=== PATIENT | male | born 1955 | race Hispanic/Latino ===

== ENCOUNTER 2020-04-02 20:22 | Inpatient (IN) | payer OTHER ==
--- NOTE | 2020-04-02 20:49 | Emergency Department Report ---
ED Chest Pain HPI - General Chief Complaint: Chest Pain Stated Complaint: CHEST PAIN Time Seen by Provider: 04/02/20 20:34 Source: patient, EMS Mode of arrival: Stretcher Limitations: No Limitations - History of Present Illness Initial Comments: 64-year-old male with a past medical history of CAD with MT x2 with 2 stents last placed 8 months ago presents to the hospital complaining of sudden onset of chest pressure while walking up a steep hill prior to arrival. Pain was rated 7/10 in intensity substernal, pressure, with radiation to the left arm. Has associated nausea and mild shortness of breath without vomiting or diaphoresis. Pain lasted a total of 45 minutes and resolved after receiving sublingual nitroglycerin provided by EMS. Pain is currently rated 2/10 in intensity and patient reports he is feeling much better. Patient has been compliant with his Plavix and baby aspirin. He states his diabetes is "diet-controlled" and denies smoking, elevated cholesterol, or family history of CAD. He denies taking any additional medications. He last had his cardiac cath 8 months ago at [facility] but does not follow-up with outpatient jig bore tool maker on a regular basis. Patient states he is currently on a ketogenic diet for the last 8 months since his last MT and that he is overall been feeling stronger with more energy and has been asymptomatic until this episode today. EMS EKG was transmitted prior to patient arrival, evaluated by Dr. Ronald Torres, and then transmitted to on-call STEMI jig bore tool maker Dr. Dominguez. Patient deemed not to have findings of ST elevation MT therefore Property Underwriter was not activated Severity scale (0 -10): 2 - Related Data Home Medications Medication Instructions Recorded Confirmed Last Taken Aspirin 325 mg PO QDAY 04/02/20 04/02/20 Unknown Clopidogrel [Plavix] 75 mg PO QDAY 04/02/20 04/02/20 Unknown Allergies Allergy/AdvReac Type Severity Reaction Status Date / Time Penicillins Allergy Rash Verified 04/02/20 20:38 Heart Score - HEART Score History: Highly suspicious EKG: Non-specific Age: 45-65 Risk factors: 1-2 risk factors Troponin: < normal limit HEART Score: 5 ED Review of Systems ROS: Stated complaint: CHEST PAIN Other details as noted in HPI Comment: All other systems reviewed and negative ED Past Medical Hx - Past Medical History Previous Medical History?: Yes Hx Heart Attack/AMI: Yes (x2) Hx Diabetes: Yes ("diet controlled') Additional medical history: heart failure - Surgical History Past Surgical History?: Yes Additional Surgical History: undescended testicle, 2 heart stents - Social History Smoking Status: Former Smoker Substance Use Type: None - Medications Home Medications: Home Medications Medication Instructions Recorded Confirmed Last Taken Type Aspirin 325 mg PO QDAY 04/02/20 04/02/20 Unknown History Clopidogrel [Plavix] 75 mg PO QDAY 04/02/20 04/02/20 Unknown History ED Physical Exam - General Limitations: No Limitations - Other Other exam information: General: No acute distress Head: Atraumatic Eyes: normal appearance ENT: Moist mucous membranes Neck: Normal appearance, no midline tenderness Chest: Clear to auscultation bilaterally CV: Regular rate and rhythm Abdomen: Soft, normal bowel sounds, nontender, nondistended, no rebound or guarding Back: Normal inspection Extremity: Normal inspection, full range of motion, no calf tenderness or leg edema Neuro: Alert O x 3, no facial asymmetry, speech clear, no gross motor sensory deficit Psych: Appropriate behavior Skin: Rash/lesion to upper right thoracic back that are covered with skin cream. Patient states he is chronically been there greater than 8 months. He did have them on the left upper thoracic area as well and they have healed ED Course Vital Signs 04/02/20 04/02/20 04/02/20 20:33 20:36 20:45 Temperature 97.8 F Pulse Rate 62 72 63 Respiratory 11 L 15 11 L Rate Blood Pressure 126/65 126/65 Blood Pressure 126/65 [Right] O2 Sat by Pulse 99 99 100 Oximetry 04/02/20 04/02/20 04/02/20 21:00 21:15 21:31 Temperature Pulse Rate 66 63 61 Respiratory 15 15 17 Rate Blood Pressure 120/63 120/63 120/63 Blood Pressure [Right] O2 Sat by Pulse 98 96 98 Oximetry 04/02/20 04/02/20 21:45 22:00 Temperature Pulse Rate 61 60 Respiratory 15 16 Rate Blood Pressure 120/63 125/65 Blood Pressure [Right] O2 Sat by Pulse 97 99 Oximetry DAMON score - Damon Score Age > 65: (0) No Aspirin use within the Past 7 Days: (1) Yes 3 or more CAD Risk Factors: (0) No 2 or more Angina events in past 24 hrs: (0) No Known CAD with more than 50% Stenosis: (1) Yes Elevated Cardiac Markers: (0) No ST Deviation Greater than 0.5mm: (0) No DAMON Score: 2 ED Medical Decision Making - Lab Data Result diagrams: 04/02/20 21:00 04/02/20 21:00 Lab Results 04/02/20 04/02/20 04/02/20 Range/Units 21:00 21:00 21:00 WBC 8.5 (4.5-11.0) K/mm3 RBC 4.42 (3.65-5.03) M/mm3 Hgb 14.1 (11.8-15.2) gm/dl Hct 43.2 (35.5-45.6) % MCV 98 H (84-94) fl MCH 32 (28-32) pg MCHC 33 (32-34) % RDW 15.4 H (13.2-15.2) % Plt Count 171 (140-440) K/mm3 Lymph % (Auto) 17.5 (13.4-35.0) % Anson % (Auto) 6.4 (0.0-7.3) % Eos % (Auto) 1.6 (0.0-4.3) % Baso % (Auto) 0.9 (0.0-1.8) % Lymph # (Auto) 1.5 (1.2-5.4) K/mm3 Anson # (Auto) 0.5 (0.0-0.8) K/mm3 Eos # (Auto) 0.1 (0.0-0.4) K/mm3 Baso # (Auto) 0.1 (0.0-0.1) K/mm3 Seg Neutrophils % 73.6 H (40.0-70.0) % Seg Neutrophils # 6.3 (1.8-7.7) K/mm3 PT 13.5 (12.2-14.9) Sec. INR 1.02 (0.87-1.13) APTT 27.1 (24.2-36.6) Sec. Sodium 142 (137-145) mmol/L Potassium 3.6 (3.6-5.0) mmol/L Chloride 102.6 (98-107) mmol/L Carbon Dioxide 21 L (22-30) mmol/L Anion Gap 22 mmol/L BUN 23 H (9-20) mg/dL Creatinine 0.9 (0.8-1.3) mg/dL Estimated GFR > 60 ml/min BUN/Creatinine Ratio 26 % Glucose 110 H (75-100) mg/dL Calcium 9.8 (8.4-10.2) mg/dL Magnesium (1.7-2.3) mg/dL Troponin T < 0.010 (0.00-0.029) ng/mL 04/02/20 Range/Units 21:00 WBC (4.5-11.0) K/mm3 RBC (3.65-5.03) M/mm3 Hgb (11.8-15.2) gm/dl Hct (35.5-45.6) % MCV (84-94) fl MCH (28-32) pg MCHC (32-34) % RDW (13.2-15.2) % Plt Count (140-440) K/mm3 Lymph % (Auto) (13.4-35.0) % Anson % (Auto) (0.0-7.3) % Eos % (Auto) (0.0-4.3) % Baso % (Auto) (0.0-1.8) % Lymph # (Auto) (1.2-5.4) K/mm3 Anson # (Auto) (0.0-0.8) K/mm3 Eos # (Auto) (0.0-0.4) K/mm3 Baso # (Auto) (0.0-0.1) K/mm3 Seg Neutrophils % (40.0-70.0) % Seg Neutrophils # (1.8-7.7) K/mm3 PT (12.2-14.9) Sec. INR (0.87-1.13) APTT (24.2-36.6) Sec. Sodium (137-145) mmol/L Potassium (3.6-5.0) mmol/L Chloride (98-107) mmol/L Carbon Dioxide (22-30) mmol/L Anion Gap mmol/L BUN (9-20) mg/dL Creatinine (0.8-1.3) mg/dL Estimated GFR ml/min BUN/Creatinine Ratio % Glucose (75-100) mg/dL Calcium (8.4-10.2) mg/dL Magnesium 1.80 (1.7-2.3) mg/dL Troponin T (0.00-0.029) ng/mL - EKG Data -: EKG Interpreted by Me EKG shows normal: sinus rhythm, ST-T waves (no stemi, pvc's) Rate: normal (66) - EKG Data When compared to previous EKG there are: no significant change (no change compared to EMS ekg) - Radiology Data Radiology results: report reviewed CHEST 1 VIEW 2040 INDICATION / CLINICAL INFORMATION: Chest Pain COMPARISON: None available. FINDINGS: SUPPORT DEVICES: None HEART / MEDIASTINUM: No significant abnormality. LUNGS / PLEURA: No significant pulmonary or pleural abnormality. No pneumothorax. ADDITIONAL FINDINGS: No significant additional findings. IMPRESSION: No significant acute abnormality - Medical Decision Making 64-year male presents to the hospital with substernal chest tightness with radiation to left arm started while climbing up a steep hill. Pain persisted and was subsequently alleviated by nitro provided by EMS. Patient compliant with aspirin and Plavix. Patient significant cardiac risk factors with MT x2, stent x2 with last cath/stent placement 8 months ago. Patient is not follow-up with a jig bore tool maker outpatient. EKG evaluation here without acute ST ration MT and ED EKG unchanged from EMS EKG with exception of multiple PVCs here in the de partment. Magnesium and troponin are negative. Repeat troponin pending. Pain resolved in the ED without additional treatment. Hospitalist informed for admission. Cardiology consult ordered with on-call jig bore tool maker group [facility] Critical Care Time: No Critical care attestation.: If time is entered above; I have spent that time in minutes in the direct care of this critically ill patient, excluding procedure time. ED Disposition Clinical Impression: H/O heart artery stent, Exertional chest pain Disposition: OP ADMIT IP TO THIS HOSP Is pt being admited?: Yes Condition: Stable Time of Disposition: 21:44
[2020-04-02 21:19] LABS: Basophils # (Auto) 0.1 K/mm3 (0.0-0.1); Basophils % (Auto) 0.9 % (0.0-1.8); Eosinophils # (Auto) 0.1 K/mm3 (0.0-0.4); Eosinophils % (Auto) 1.6 % (0.0-4.3); Hematocrit 43.2 % (35.5-45.6); Hemoglobin 14.1 gm/dl (11.8-15.2); Lymphocytes # (Auto) 1.5 K/mm3 (1.2-5.4); Lymphocytes % (Auto) 17.5 % (13.4-35.0); Mean Corpuscular HGB Conc 33 % (32-34); Mean Corpuscular Volume 98 fl (84-94); Monocytes # (Auto) 0.5 K/mm3 (0.0-0.8); Monocytes % (Auto) 6.4 % (0.0-7.3); Platelet Count 171 K/mm3 (140-440); Red Blood Count 4.42 M/mm3 (3.65-5.03); Red Cell Distribution Width 15.4 % (13.2-15.2)
[2020-04-02 21:28] LABS: INR 1.02 (0.87-1.13); Partial Thromboplastin Time 27.1 Sec. (24.2-36.6)
[2020-04-02 21:31] LABS: BUN/Creatinine Ratio 26; Blood Urea Nitrogen 23 mg/dL (9-20); Calcium 9.8 mg/dL (8.4-10.2); Hemolysis Index 4
--- NOTE | 2020-04-02 21:31 | XRay Report ---
CHEST 1 VIEW 2040 INDICATION / CLINICAL INFORMATION: Chest Pain COMPARISON: None available. FINDINGS: SUPPORT DEVICES: None HEART / MEDIASTINUM: No significant abnormality. LUNGS / PLEURA: No significant pulmonary or pleural abnormality. No pneumothorax. ADDITIONAL FINDINGS: No significant additional findings. IMPRESSION: No significant acute abnormality Signer Name: Trung Frederick MD Signed: 04/02/2020 9:26 PM Workstation Name: [id number]
[2020-04-02] MEDS ORDERED: ACETAMINOPHEN 325 MG TAB PO PRN ×2 (22:10)
[2020-04-02] MEDS ORDERED: DEXTROSE 50% IN WATER (25GM) 50 ML SYRINGE IV PRN (22:10)
[2020-04-02] MEDS ORDERED: MORPHINE 4 MG/1 ML INJ IV PRN (22:10)
[2020-04-02] MEDS ORDERED: ONDANSETRON 4 MG/2 ML INJ IV PRN (22:10)
--- NOTE | 2020-04-02 22:23 | History and Physical Report ---
History of Present Illness Date of examination: 04/02/20 Date of admission: 04/02/2020 Chief complaint: Chest Pain History of present illness: 64-year-old male with known history of coronary artery disease with [place] and stent placement x2, history of CHF, diet-controlled diabetes mellitus presented to the emergency room today complaining of sudden onset of chest pressure today. Symptoms were said to have started when he was walking up a steep hill earlier today. He was said to be substernal with radiation towards the left upper upper extremity. On a scale of 10 pain was about 7/10 in severity. Pain lasted for about 30 to 45 minutes but felt better after taking some sublingual nitroglycerin which was given to him by EMS. He had associated nausea and mild shortness of breath. He denies any vomiting, no diaphoresis, no headache or dizziness. Patient had a cardiac cath about 8 months ago at [facility] but has not followed up with any slurry control operator helper lately. Upon arrival in the emergency room work-up included EKG, chest x-ray, troponin has been unremarkable. Patient admitted to be evaluated for chest pain. Case was discussed with on- call slurry control operator helper by the ER physician. Past History Past Medical History: CAD (S/P [place] X2), diabetes (Diet Controlled), heart failure Past Surgical History: PTCA, Other (Surgery for Undescended testicle.) Social history: smoking (Former Smoker) Family history: no significant family history Medications and Allergies Allergies Allergy/AdvReac Type Severity Reaction Status Date / Time Penicillins Allergy Rash Verified 04/02/20 20:38 Home Medications Medication Instructions Recorded Confirmed Last Taken Type Aspirin 325 mg PO QDAY 04/02/20 04/02/20 Unknown History Clopidogrel [Plavix] 75 mg PO QDAY 04/02/20 04/02/20 Unknown History Active Meds: Active Medications Acetaminophen (Tylenol) 650 mg PO Q4H PRN PRN Reason: Pain MILD(1-3)/Fever >100.5/TOLENTINO Acetaminophen (Tylenol) 650 mg PO Q6H PRN PRN Reason: Pain, Mild (1-3) Aspirin (Ecotrin) 325 mg PO QDAY NAYLA Dextrose (D50w (25gm) Syringe) 50 ml IV Q30MIN PRN; Protocol PRN Reason: Hypoglycemia Dextrose (D50w (25gm) Syringe) 50 ml IV Q30MIN PRN; Protocol PRN Reason: Hypoglycemia Insulin Human Lispro (Humalog) 0 unit SUB-Q ACHS NAYLA; Protocol Morphine Sulfate (Morphine) 2 mg IV Q5MIN PRN PRN Reason: Chest Pain Nitroglycerin (Nitrostat) 0.4 mg SL Q5M PRN PRN Reason: Chest Pain Ondansetron HCl (Zofran) 4 mg IV Q8H PRN PRN Reason: Nausea And Vomiting Sodium Chloride (Sodium Chloride Flush Syringe 10 Ml) 10 ml IV BID NAYLA Sodium Chloride (Sodium Chloride Flush Syringe 10 Ml) 10 ml IV PRN PRN PRN Reason: LINE FLUSH Sodium Chloride (Sodium Chloride Flush Syringe 10 Ml) 10 ml IV PRN PRN PRN Reason: LINE FLUSH Review of Systems Constitutional: no fever, no chills Ears, nose, mouth and throat: no nasal congestion, no sore throat Cardiovascular: chest pain, no palpitations Respiratory: no cough, no shortness of breath Gastrointestinal: nausea, no abdominal pain, no vomiting, no diarrhea Genitourinary Male: no dysuria, no hematuria, no nocturia Musculoskeletal: no neck pain, no low back pain Integumentary: no rash, no pruritis Neurological: no headaches, no confusion Psychiatric: no anxiety, no depression Exam - Constitutional Vitals: Temp Pulse Resp BP Pulse Ox 97.8 F 60 16 125/65 99 04/02/20 20:36 04/02/20 22:00 04/02/20 22:00 04/02/20 22:00 04/02/20 22:00 General appearance: Present: no acute distress, well-nourished - EENT Eyes: Present: PERRL, EOM intact. Absent: scleral icterus ENT: hearing intact, clear oral mucosa, dentition normal - Neck Neck: Present: supple, normal ROM - Respiratory Respiratory effort: normal Respiratory: bilateral: CTA - Cardiovascular Rhythm: regular Heart Sounds: Present: S1 & S2. Absent: gallop, systolic murmur, diastolic murmur, rub - Extremities Extremities: no ischemia, pulses intact, pulses symmetrical, No edema, normal temperature, normal color, Full ROM Peripheral Pulses: within normal limits - Abdominal General gastrointestinal: Present: soft, non-tender, non-distended, normal bowel sounds. Absent: mass - Integumentary Integumentary: Present: clear, warm, dry. Absent: rash - Musculoskeletal Musculoskeletal: strength equal bilaterally - Psychiatric Psychiatric: appropriate mood/affect, intact judgment & insight, memory intact, cooperative - Neurologic Neurologic: CNII-XII intact, no focal deficits, moves all extremities HEART Score - HEART Score History: Slightly suspicious EKG: Non-specific Age: 45-65 Risk factors: > 3 risk factors or hx of atherosclerotic disease Troponin: Troponin T < 0.010 ng/mL (0.00-0.029) 04/02/20 21:00 Troponin: < normal limit HEART Score: 4 Results - Labs CBC & Chem 7: 04/03/20 04:55 04/03/20 04:55 Labs: Abnormal lab results 04/02/20 04/02/20 Range/Units 21:00 21:00 MCV 98 H (84-94) fl RDW 15.4 H (13.2-15.2) % Seg Neutrophils % 73.6 H (40.0-70.0) % Carbon Dioxide 21 L (22-30) mmol/L BUN 23 H (9-20) mg/dL Glucose 110 H (75-100) mg/dL Assessment and Plan - Patient Problems (1) Exertional chest pain Current Visit: Yes Status: Acute Plan to address problem: Patient admitted and placed on telemetry. Will check serial cardiac enzymes. Patient placed on daily aspirin, sublingual nitroglycerin and IV morphine as needed for chest pain. Informed during the course of this dictation that the troponin levels has become positive. Will place patient on heparin drip and await further evaluation by cardiology. (2) H/O heart artery stent Current Visit: Yes Status: Acute Plan to address problem: Patient had last cardiac cath about 8 months ago. He has not followed up with any slurry control operator helper lately. We will await further evaluation by cardiology. (3) Diabetes mellitus Current Visit: Yes Status: Acute Plan to address problem: Will monitor Accu-Chek. (4) DVT prophylaxis Current Visit: Yes Status: Acute Plan to address problem: Patient currently on anticoagulation. (5) Full code status Current Visit: Yes Status: Acute
[2020-04-03 01:38] LABS: Basophils # (Auto) 0.1 K/mm3 (0.0-0.1); Eosinophils # (Auto) 0.1 K/mm3 (0.0-0.4); Hematocrit 40.2 % (35.5-45.6); Hemoglobin 13.5 gm/dl (11.8-15.2); Lymphocytes # (Auto) 1.3 K/mm3 (1.2-5.4); Lymphocytes % (Auto) 17.6 % (13.4-35.0); Mean Corpuscular HGB Conc 34 % (32-34); Mean Corpuscular Volume 95 fl (84-94); Monocytes # (Auto) 0.4 K/mm3 (0.0-0.8); Platelet Count 167 K/mm3 (140-440); Red Blood Count 4.25 M/mm3 (3.65-5.03); Red Cell Distribution Width 14.6 % (13.2-15.2)
[2020-04-03 01:46] LABS: BUN/Creatinine Ratio 22; Blood Urea Nitrogen 20 mg/dL (9-20); Calcium 9.3 mg/dL (8.4-10.2); Hemolysis Index 2
[2020-04-03 03:12] LABS: Chol/HDL Ratio 3.46 %
[2020-04-03 05:56] LABS: BUN/Creatinine Ratio 19; Blood Urea Nitrogen 17 mg/dL (9-20); Calcium 9.4 mg/dL (8.4-10.2); Hemolysis Index 3
[2020-04-03 05:58] LABS: Basophils # (Auto) 0.1 K/mm3 (0.0-0.1); Basophils % (Auto) 1.1 % (0.0-1.8); Eosinophils # (Auto) 0.1 K/mm3 (0.0-0.4); Eosinophils % (Auto) 2.5 % (0.0-4.3); Hematocrit 39.9 % (35.5-45.6); Hemoglobin 13.5 gm/dl (11.8-15.2); Lymphocytes # (Auto) 1.7 K/mm3 (1.2-5.4); Mean Corpuscular HGB Conc 34 % (32-34); Mean Corpuscular Volume 93 fl (84-94); Monocytes # (Auto) 0.4 K/mm3 (0.0-0.8); Monocytes % (Auto) 6.7 % (0.0-7.3); Platelet Count 162 K/mm3 (140-440); Red Blood Count 4.28 M/mm3 (3.65-5.03); Red Cell Distribution Width 14.3 % (13.2-15.2)
[2020-04-03 06:02] LABS: INR 1.06 (0.87-1.13)
[2020-04-03] MEDS ORDERED: HEPARIN 10,000 UNITS/10 ML VIAL IV ONE ×2 (06:11→06:22)
[2020-04-03 07:11] LABS: Partial Thromboplastin Time 29.3 Sec. (24.2-36.6)
[2020-04-03] MEDS: HEPARIN/ 0.45% NACL DRIP 25,000 UNIT/500 ML BAG IV SCH ×2 (07:42→15:30)
[2020-04-03] MEDS: INSULIN LISPRO 100 UNIT/ML VIAL 3 mL SUB-Q SCH ×5 (08:15→22:12)
[2020-04-03] MEDS ORDERED: REGADENOSON 0.4 MG/5 ML INJ IV ONE (08:21)
[2020-04-03] MEDS: NITROGLYCERIN 0.4 MG TAB SUBL SL PRN ×2 (09:36→09:47)
--- NOTE | 2020-04-03 09:54 | Consultation ---
HISTORY OF PRESENT ILLNESS: The patient is a 64-year-old male with a known history of diabetes, coronary artery disease and congestive heart failure. He moved here not long ago. He had a catheterization about 8 months ago at [facility] and he presented to the Emergency Room with prolonged chest pain that lasted 30-45 minutes that was precipitated by exertion. He states that right now he is having some mild chest pain at rest. There is a remote history of congestive heart failure. He has been following a ketogenic diet and has been losing weight. His blood sugar has been okay. He stopped his cholesterol medication and diabetes medicine. He is not seeing a doctor regularly. There has been no sleep disorder, palpitations, dizziness, lung disorders, claudication or edema. He did not describe any problems with hypertension. He does describe some mild neuropathy. He stopped smoking years ago. The chest discomfort felt like his previous heart pain. He has had stents placed twice in the past and he has had one heart attack in the past. It seemed to improve after EMS gave him sublingual nitroglycerin. SOCIAL HISTORY: Smoking, prior smoker. Alcohol, no heavy use. FAMILY HISTORY: No significant family history is listed. MEDICATIONS: See the nurse's list. ALLERGIES: PENICILLIN. OPERATIONS: None listed. REVIEW OF SYSTEMS: No infectious symptoms described. No significant skin or skeletal problems described. No significant GI or disorders described. A review of systems is otherwise unremarkable. PHYSICAL EXAMINATION: GENERAL: Well-developed, well-nourished, no acute distress. Alert, oriented, cooperative. Mental status normal. EYES, NOSE, AND THROAT: Unremarkable. NECK: Reveals no JVD or bruits. Neck is supple, no masses. LUNGS: Clear. No labored respirations. HEART: Regular rhythm. Soft S4. No murmurs or rubs. ABDOMEN: Soft, nontender, no masses. EXTREMITIES: No cyanosis, clubbing, edema. Peripheral pulses are intact, but slightly diminished. NEUROLOGIC: Symmetrical. SKIN: Clear. LABORATORY DATA: EKG, nonspecific ST-T changes. IMPRESSION: 1. Unstable angina. Given his prolonged chest pain prior to presentation, now he is having mild chest pain at rest, I feel a stress test would be risky and he should have coronary angiography. Note that there has been a mild increase, trend in the troponin level, although the troponin level is low. 2. Hyperlipidemia with an LDL of 150, he has not been on statin therapy. 3. History of type 2 diabetes: Controlled. 4. Prior history of congestive heart failure: LV function will be determined during this hospitalization. PLAN: Aggressive antianginal therapy. Recommend coronary angiography at this time. Thank you for this consultation. JOB# [id number] ANNEMARIE/NTS
--- NOTE | 2020-04-03 10:20 | Progress Note ---
Assessment and Plan - Patient Problems (1) Exertional chest pain Current Visit: Yes Status: Acute Plan to address problem: Present to the emergency department complaining of exertional chest pain Denies chest pain at this time Cardiology consulted in the emergency department Serial troponins have been elevated (<0.010, 0.051, 0.079) PRN morphine and nitroglycerin for chest pain PRN EKG and every morning Patient has a follow-up with paper baler within 8 months r/t distance 04/03 stress test canceled due to excessive risk by paper baler Scheduled for left heart cath on 04/04 (2) Congestive heart failure Current Visit: Yes Status: Chronic Plan to address problem: Unknown ejection fraction 04/03 left heart cath Cardiology consult Supportive care (3) Diabetes mellitus Current Visit: Yes Status: Chronic Plan to address problem: Patient states has been diet controlled, he has been following a ketogenic diet SSI Accu-Cheks AC at bedtime Hemoglobin A1c (4) CAD (coronary artery disease) Current Visit: Yes Status: Chronic Plan to address problem: 04/03 LDH profile: Triglycerides 52, cholesterol 208, LDL 150, HDL 60 Patient states he has been following the ketogenic diet Started on statin therapy (5) DVT prophylaxis Current Visit: Yes Status: Acute Plan to address problem: SCDs to bilateral lower extremities while in bed Systemic anticoagulation with heparin drip History Interval history: 64-year-old male with coronary artery disease with TX and stent placement x2, CHF, DM and former smoker who presents to the emergency department on 04/02 with exertional substernal chest pressure with radiation towards the left upper extremity rated a 7/10 which lasted about 30 to 45 minutes and improved with sublingual nitroglycerin. He had associated nausea and mild shortness of breath. Of note the patient had a cardiac cath about 8 months ago at [facility] but has not followed up with a paper baler lately since he has moved away from his paper baler. Work-up in the emergency department included EKG, chest x-ray, and cardiac enzymes which all showed no acute abnormality. Cardiology was consulted in the emergency department. After his admission to the hospital his troponins have elevated and he was scheduled for a stress test today. However after evaluation by the paper baler it was deemed that a stress test would be dangerous and he has been scheduled for left heart cath tomorrow morning. He will be n.p.o. after midnight. The time of my examination he vincenzo ed any chest pain, nausea/vomiting or shortness of breath. He is currently on heparin drip and no acute events were reported overnight. Hospitalist Physical - Constitutional Vitals: Temp Pulse Resp BP Pulse Ox 97.9 F 67 20 126/70 99 04/03/20 07:42 04/03/20 09:47 04/03/20 07:42 04/03/20 09:47 04/03/20 07:42 General appearance: Present: no acute distress, well-nourished - EENT Eyes: Present: PERRL, EOM intact ENT: hearing intact, clear oral mucosa - Neck Neck: Present: supple, normal ROM - Respiratory Respiratory effort: normal Respiratory: bilateral: CTA - Cardiovascular Rhythm: regular Heart Sounds: Present: S1 & S2. Absent: systolic murmur, diastolic murmur - Extremities Extremities: no ischemia, pulses intact, pulses symmetrical, No edema, normal temperature, normal color, Full ROM Peripheral Pulses: within normal limits - Abdominal General gastrointestinal: soft, non-tender, normal bowel sounds - Integumentary Integumentary: Present: clear, warm, dry - Psychiatric Psychiatric: appropriate mood/affect, cooperative - Neurologic Neurologic: CNII-XII intact, no focal deficits, moves all extremities - Allied Health Allied health notes reviewed: nursing HEART Score - HEART Score EKG: Non-specific Age: 45-65 Risk factors: > 3 risk factors or hx of atherosclerotic disease Troponin: Troponin T 0.079 ng/mL (0.00-0.029) H D 04/03/20 04:55 Troponin: 1-3x normal limit Results - Labs CBC & Chem 7: 04/03/20 04:55 04/03/20 04:55 Labs: Laboratory Last Values WBC 5.8 K/mm3 (4.5-11.0) 04/03/20 04:55 RBC 4.28 M/mm3 (3.65-5.03) 04/03/20 04:55 Hgb 13.5 gm/dl (11.8-15.2) 04/03/20 04:55 Hct 39.9 % (35.5-45.6) 04/03/20 04:55 MCV 93 fl (84-94) 04/03/20 04:55 MCH 32 pg (28-32) 04/03/20 04:55 MCHC 34 % (32-34) 04/03/20 04:55 RDW 14.3 % (13.2-15.2) 04/03/20 04:55 Plt Count 162 K/mm3 (140-440) 04/03/20 04:55 Lymph % (Auto) 29.0 % (13.4-35.0) 04/03/20 04:55 [place] % (Auto) 6.7 % (0.0-7.3) 04/03/20 04:55 Eos % (Auto) 2.5 % (0.0-4.3) 04/03/20 04:55 Baso % (Auto) 1.1 % (0.0-1.8) 04/03/20 04:55 Lymph # (Auto) 1.7 K/mm3 (1.2-5.4) 04/03/20 04:55 [place] # (Auto) 0.4 K/mm3 (0.0-0.8) 04/03/20 04:55 Eos # (Auto) 0.1 K/mm3 (0.0-0.4) 04/03/20 04:55 Baso # (Auto) 0.1 K/mm3 (0.0-0.1) 04/03/20 04:55 Seg Neutrophils % 60.7 % (40.0-70.0) 04/03/20 04:55 Seg Neutrophils # 3.5 K/mm3 (1.8-7.7) 04/03/20 04:55 PT 13.9 Sec. (12.2-14.9) 04/03/20 04:55 INR 1.06 (0.87-1.13) 04/03/20 04:55 APTT 29.3 Sec. (24.2-36.6) 04/03/20 04:55 Sodium 140 mmol/L (137-145) 04/03/20 04:55 Potassium 3.6 mmol/L (3.6-5.0) 04/03/20 04:55 Chloride 103.0 mmol/L (98-107) 04/03/20 04:55 Carbon Dioxide 23 mmol/L (22-30) 04/03/20 04:55 Anion Gap 18 mmol/L 04/03/20 04:55 BUN 17 mg/dL (9-20) 04/03/20 04:55 Creatinine 0.9 mg/dL (0.8-1.3) 04/03/20 04:55 Estimated GFR > 60 ml/min 04/03/20 04:55 BUN/Creatinine Ratio 19 % 04/03/20 04:55 Glucose 93 mg/dL (75-100) 04/03/20 04:55 Calcium 9.4 mg/dL (8.4-10.2) 04/03/20 04:55 Magnesium 1.80 mg/dL (1.7-2.3) 04/02/20 21:00 Troponin T 0.079 ng/mL (0.00-0.029) H D 04/03/20 04:55 Triglycerides 52 mg/dL (2-149) 04/03/20 00:28 Cholesterol 208 mg/dL (50-199) H 04/03/20 00:28 LDL Cholesterol Direct 150 mg/dL (50-130) H 04/03/20 00:28 HDL Cholesterol 60 mg/dL (40-59) H 04/03/20 00:28 Cholesterol/HDL Ratio 3.46 % 04/03/20 00:28 Duff/IV: Voiding Method Toilet IV Catheter Type [Right INT / Saline Lock Antecubital] Active Medications - Current Medications Current Medications: Generic Name Dose Route Start Last Admin Trade Name Freq PRN Reason Stop Dose Admin Acetaminophen 650 mg 04/02/20 22:10 Tylenol PO Q4H PRN Pain MILD(1-3)/Fever >100.5/TOLENTINO Aspirin 325 mg 04/03/20 10:00 Ecotrin PO QDAY NAYLA Atorvastatin Calcium 80 mg 04/03/20 22:00 Lipitor PO QHS NAYLA Dextrose 50 ml 04/02/20 22:10 D50w (25gm) Syringe IV Q30MIN PRN Hypoglycemia Protocol Heparin Sodium/Sodium Chloride 25,000 unit in 500 mls @ 20 mls/hr 04/03/20 07:00 04/03/20 07:42 Heparin/ 0.45% Nacl-25,000 Unit/500 Ml IV 1,000 units/hr TITRATE NAYLA 20 mls/hr Administration Protocol 1,000 UNITS/HR Insulin Human Lispro 0 unit 04/03/20 07:30 04/03/20 08:26 Humalog SUB-Q Not Given ACHS [facility] Protocol Morphine Sulfate 2 mg 04/02/20 22:10 Morphine IV Q5MIN PRN Chest Pain Nitroglycerin 0.4 mg 04/02/20 22:10 04/03/20 09:47 Nitrostat SL 0.4 mg Q5M PRN Administration Chest Pain Ondansetron HCl 4 mg 04/02/20 22:10 Zofran IV Q8H PRN Nausea And Vomiting Sodium Chloride 10 ml 04/03/20 10:00 Sodium Chloride Flush Syringe 10 Ml IV BID [facility] Sodium Chloride 10 ml 04/02/20 22:10 Sodium Chloride Flush Syringe 10 Ml IV PRN PRN LINE FLUSH
[2020-04-03] MEDS: ASPIRIN EC 325 MG TAB PO SCH (10:37)
[2020-04-03] MEDS: NITROGLYCERIN 2% OINT 1 GM TP SCH ×2 (14:02→19:00)
--- NOTE | 2020-04-03 18:25 | Event Note ---
Date: 04/03/20 I called and spoke to patient's Ms. Tennille Linn and his daughter at [phone], and discussed about the patient's condition treatment plan, schedule heart cath tomorrow.I answered all their questions, and encouraged him to call back with any new questions or concerns I also informed patient's nurse Ms. Pizarro of the conversation with patient's spouse and the daughter.
[2020-04-03] MEDS ORDERED: carvediloL 3.125 MG TAB PO SCH (22:00)
[2020-04-04] MEDS: NITROGLYCERIN 2% OINT 1 GM TP SCH (06:55)
[2020-04-04] MEDS: HEPARIN/ 0.45% NACL DRIP 25,000 UNIT/500 ML BAG IV SCH (07:32)
[2020-04-04 08:01] LABS: INR 0.98 (0.87-1.13)
[2020-04-04 08:03] LABS: Partial Thromboplastin Time 42.2 Sec. (24.2-36.6)
[2020-04-04 08:08] LABS: Alanine Aminotransferase 12 units/L (7-56); Albumin 3.9 g/dL (3.9-5); BUN/Creatinine Ratio 15; Blood Urea Nitrogen 15 mg/dL (9-20); Calcium 9.2 mg/dL (8.4-10.2); Hemolysis Index 14
[2020-04-04] MEDS: INSULIN LISPRO 100 UNIT/ML VIAL 3 mL SUB-Q SCH ×4 (08:26→21:45)
[2020-04-04] MEDS ORDERED: HEPARIN/NS 5000 UNIT/500ML 1,000 ML IR ONE (09:19)
[2020-04-04] MEDS ORDERED: VERAPAMIL 5 MG/2 ML INJ ONE (09:19)
[2020-04-04] MEDS ORDERED: NITROGLYCERIN SYRINGE 3 ML ONE (09:20)
[2020-04-04] MEDS ORDERED: SODIUM CHLORIDE 0.9% 500 ML 500 ML ONE (09:20)
[2020-04-04] MEDS ORDERED: fentaNYL 100 MCG/2 ML INJ ONE (09:20)
[2020-04-04] MEDS ORDERED: MIDAZOLAM 2 MG/2 ML INJ ONE (09:20)
[2020-04-04] MEDS ORDERED: LIDOCAINE (2%) 20 MG/1 ML VIAL 20 ML MDV INFILTRATI ONE (09:20)
[2020-04-04] MEDS ORDERED: ASPIRIN 325 MG TAB ONE (09:21)
[2020-04-04] MEDS: ASPIRIN EC 325 MG TAB PO SCH (09:45)
[2020-04-04] MEDS: LISINOPRIL 5 MG TAB PO SCH (09:45)
--- NOTE | 2020-04-04 09:58 | Progress Note ---
Assessment and Plan - Patient Problems (1) Exertional chest pain Current Visit: Yes Status: Acute Plan to address problem: Present to the emergency department complaining of exertional chest pain Cardiology consulted in the emergency department Serial troponins have been elevated (<0.010, 0.051, 0.079) -Started on heparin gtt 04/03 PRN morphine and nitroglycerin for chest pain PRN EKG and every morning -Nitro paste started on 04/03 Patient has not followup with manager talent acquisition within 8 months r/t distance 04/03 stress test canceled due to excessive risk by manager talent acquisition Scheduled for left heart cath on 04/04 (2) Congestive heart failure Current Visit: Yes Status: Chronic Plan to address problem: Unknown ejection fraction 04/03 left heart cath Cardiology consult Supportive care -Started on BB (3) Diabetes mellitus Current Visit: Yes Status: Chronic Plan to address problem: Patient states has been diet controlled, he has been following a ketogenic diet SSI Accu-Cheks AC at bedtime 04/03 Hemoglobin A1c 6 (4) CAD (coronary artery disease) Current Visit: Yes Status: Chronic Plan to address problem: 04/03 LDH profile: Triglycerides 52, cholesterol 208, LDL 150, HDL 60 Patient states he has been following the ketogenic diet Started on statin therapy (5) DVT prophylaxis Current Visit: Yes Status: Acute Plan to address problem: SCDs to bilateral lower extremities while in bed Systemic anticoagulation with heparin drip History Interval history: 64-year-old male with coronary artery disease with MN and stent placement x2, CHF, DM and former smoker who presents to the emergency department on 04/02 with exertional substernal chest pressure with radiation towards the left upper extremity rated a 7/10 which lasted about 30 to 45 minutes and improved with sublingual nitroglycerin. He had associated nausea and mild shortness of breath. Of note the patient had a cardiac cath about 8 months ago at [facility] but has not followed up with a manager talent acquisition lately since he has moved away from his manager talent acquisition. Work-up in the emergency department included EKG, chest x-ray, and cardiac enzymes which all showed no acute abnormality. Cardiology was consulted in the emergency department. After his admission to the hospital his troponins have elevated and he was scheduled for a stress test on 04/03 which was cancelled. He is scheduled for a LHC this am. He was started on TD nitro paste and does not complain of any chest pain at the time of my exam. CM was consulted as pt is unfunded. I spoke to the patient regarding resources for obtaining prescription discounts and ongoing outpatient care on 04/03. 04/03: After evaluation by the manager talent acquisition it was deemed that a stress test would be dangerous and he has been scheduled for left heart cath tomorrow morning. Hospitalist Physical - Constitutional Vitals: Temp Pulse Resp BP Pulse Ox 97.9 F 66 16 128/73 96 04/04/20 03:58 04/04/20 03:58 04/04/20 03:58 04/04/20 03:58 04/04/20 03:58 General appearance: Present: no acute distress, well-nourished - EENT Eyes: Present: PERRL, EOM intact ENT: hearing intact, dentition normal - Neck Neck: Present: supple, normal ROM - Respiratory Respiratory effort: normal Respiratory: bilateral: CTA - Cardiovascular Rhythm: regular Heart Sounds: Present: S1 & S2. Absent: systolic murmur, diastolic murmur - Extremities Extremities: no ischemia, pulses intact, pulses symmetrical, No edema, normal temperature, normal color, Full ROM Peripheral Pulses: within normal limits - Abdominal General gastrointestinal: soft, non-tender, non-distended, normal bowel sounds - Integumentary Integumentary: Present: clear, warm, dry - Psychiatric Psychiatric: appropriate mood/affect, cooperative - Neurologic Neurologic: CNII-XII intact, no focal deficits, moves all extremities - Allied Health Allied health notes reviewed: nursing, social work, case management HEART Score - HEART Score History: Moderately suspicious EKG: Non-specific Age: 45-65 Risk factors: > 3 risk factors or hx of atherosclerotic disease Troponin: Troponin T 0.079 ng/mL (0.00-0.029) H D 04/03/20 04:55 Troponin: 1-3x normal limit HEART Score: 6 Results - Labs CBC & Chem 7: 04/03/20 04:55 04/04/20 06:59 Labs: Laboratory Last Values WBC 5.8 K/mm3 (4.5-11.0) 04/03/20 04:55 RBC 4.28 M/mm3 (3.65-5.03) 04/03/20 04:55 Hgb 13.5 gm/dl (11.8-15.2) 04/03/20 04:55 Hct 39.9 % (35.5-45.6) 04/03/20 04:55 MCV 93 fl (84-94) 04/03/20 04:55 MCH 32 pg (28-32) 04/03/20 04:55 MCHC 34 % (32-34) 04/03/20 04:55 RDW 14.3 % (13.2-15.2) 04/03/20 04:55 Plt Count 162 K/mm3 (140-440) 04/03/20 04:55 Lymph % (Auto) 29.0 % (13.4-35.0) 04/03/20 04:55 [place] % (Auto) 6.7 % (0.0-7.3) 04/03/20 04:55 Eos % (Auto) 2.5 % (0.0-4.3) 04/03/20 04:55 Baso % (Auto) 1.1 % (0.0-1.8) 04/03/20 04:55 Lymph # (Auto) 1.7 K/mm3 (1.2-5.4) 04/03/20 04:55 [place] # (Auto) 0.4 K/mm3 (0.0-0.8) 04/03/20 04:55 Eos # (Auto) 0.1 K/mm3 (0.0-0.4) 04/03/20 04:55 Baso # (Auto) 0.1 K/mm3 (0.0-0.1) 04/03/20 04:55 Seg Neutrophils % 60.7 % (40.0-70.0) 04/03/20 04:55 Seg Neutrophils # 3.5 K/mm3 (1.8-7.7) 04/03/20 04:55 PT 13.1 Sec. (12.2-14.9) 04/04/20 06:59 INR 0.98 (0.87-1.13) 04/04/20 06:59 APTT 42.2 Sec. (24.2-36.6) H 04/04/20 06:59 Heparin Anti-Xa Level 0.28 U.I./ml (0.3-0.7) L 04/04/20 06:59 Sodium 144 mmol/L (137-145) 04/04/20 06:59 Potassium 3.9 mmol/L (3.6-5.0) 04/04/20 06:59 Chloride 105.0 mmol/L (98-107) 04/04/20 06:59 Carbon Dioxide 28 mmol/L (22-30) 04/04/20 06:59 Anion Gap 15 mmol/L 04/04/20 06:59 BUN 15 mg/dL (9-20) 04/04/20 06:59 Creatinine 1.0 mg/dL (0.8-1.3) 04/04/20 06:59 Estimated GFR > 60 ml/min 04/04/20 06:59 BUN/Creatinine Ratio 15 % 04/04/20 06:59 Glucose 79 mg/dL (75-100) 04/04/20 06:59 POC Glucose 77 (70-105) 04/04/20 04:21 Hemoglobin A1c 6.0 % (4-6) 04/03/20 13:42 Calcium 9.2 mg/dL (8.4-10.2) 04/04/20 06:59 Magnesium 1.80 mg/dL (1.7-2.3) 04/02/20 21:00 Total Bilirubin 0.60 mg/dL (0.1-1.2) 04/04/20 06:59 AST 17 units/L (5-40) 04/04/20 06:59 ALT 12 units/L (7-56) 04/04/20 06:59 Alkaline Phosphatase 50 units/L (35-129) 04/04/20 06:59 Troponin T 0.079 ng/mL (0.00-0.029) H D 04/03/20 04:55 Total Protein 6.4 g/dL (6.3-8.2) 04/04/20 06:59 Albumin 3.9 g/dL (3.9-5) 04/04/20 06:59 Albumin/Globulin Ratio 1.6 % 04/04/20 06:59 Triglycerides 52 mg/dL (2-149) 04/03/20 00:28 Cholesterol 208 mg/dL (50-199) H 04/03/20 00:28 LDL Cholesterol Direct 150 mg/dL (50-130) H 09/28/20 00:28 HDL Cholesterol 60 mg/dL (40-59) H 04/03/20 00:28 Cholesterol/HDL Ratio 3.46 % 04/03/20 00:28 Duff/IV: Voiding Method Toilet IV Catheter Type [Right INT / Saline Lock Antecubital] Active Medications - Current Medications Current Medications: Generic Name Dose Route Start Last Admin Trade Name Freq PRN Reason Stop Dose Admin Acetaminophen 650 mg 04/02/20 22:10 Tylenol PO Q4H PRN Pain MILD(1-3)/Fever >100.5/TOLENTINO Aspirin 325 mg 04/03/20 10:00 04/03/20 10:37 Ecotrin PO Not Given QDAY [facility] Atorvastatin Calcium 80 mg 04/03/20 22:00 04/03/20 22:02 Lipitor PO 80 mg QHS [facility] Administration Carvedilol 3.125 mg 04/03/20 22:00 04/03/20 22:02 Coreg PO Not Given BID [facility] Dextrose 50 ml 04/02/20 22:10 D50w (25gm) Syringe IV Q30MIN PRN Hypoglycemia Protocol Heparin Sodium/Sodium Chloride 25,000 unit in 500 mls @ 20 mls/hr 04/03/20 07:00 04/04/20 07:32 Heparin/ 0.45% Nacl-25,000 Unit/500 Ml IV 800 units/hr TITRATE NAYLA 16 mls/hr Administration Protocol 1,000 UNITS/HR Insulin Human Lispro 0 unit 04/03/20 07:30 04/03/20 22:12 Humalog SUB-Q Not Given ACHS [facility] Protocol Lisinopril 5 mg 04/04/20 10:00 Zestril PO QDAY [facility] Morphine Sulfate 2 mg 04/02/20 22:10 Morphine IV Q5MIN PRN Chest Pain Nitroglycerin 0.4 mg 04/02/20 22:10 04/03/20 09:47 Nitrostat SL 0.4 mg Q5M PRN Administration Chest Pain Nitroglycerin 0.5 inch 04/03/20 14:00 04/04/20 06:55 Nitro-Bid 2% TP Not Given QIDNTG [facility] Protocol Ondansetron HCl 4 mg 04/02/20 22:10 Zofran IV Q8H PRN Nausea And Vomiting Sodium Chloride 10 ml 04/03/20 10:00 04/03/20 22:03 Sodium Chloride Flush Syringe 10 Ml IV 10 ml BID NAYLA Administration Sodium Chloride 10 ml 04/02/20 22:10 Sodium Chloride Flush Syringe 10 Ml IV PRN PRN LINE FLUSH Nutrition/Malnutrition Assess - Dietary Evaluation Nutrition/Malnutrition Findings: Nutrition Notes Start: 04/03/20 10:12 Freq: Status: Active Protocol: Document 04/03/20 10:12 TANVIR (Rec: 04/03/20 10:16 TANVIR [email or web address]) Nutrition Notes Need for Assessment generated from: MD Order,Education Initial or Follow up Brief Note Current Diagnosis Coronary Artery Disease, Diabetes,Heart Failure Other Pertinent Diagnosis Chest pain, hx of MN s/p stent placement x 2 Current Diet NPO Labs/Tests Total cholesterol 208 LDL 150 Height 5 ft 11 in Weight 87.7 kg [place] Body Weight (kg) 78.18 BMI 26.9 Weight Status Appropriate Subjective/Other Information RD consulted for diet education. BP been <140/90 since admission. Elevated lipid panel though. He is scheduled for procedures today (hence, NPO status). Minimum of two criteria No Is patient on ventilator? No Is Patient Ambulatory and/or Out of Bed Yes REE-([place]. Jeor-ambulatory/OOB) [ 2208.869 [id number]] Calculation Used for Recommendations [place] or Additional Notes Pro needs 1-1.2g/k-105g/ day Fluid needs 1ml/kcal Nutrition Intervention Anticipated Discharge Needs: Heart-healthy/CHO-controlled diet Follow-Up By: 04/04/20 Additional Comments F/U: Heart-healthy diet education needs
[2020-04-04] MEDS: HEPARIN 10,000 UNITS/10 ML VIAL ONE ×2 (10:02→10:14)
[2020-04-04] MEDS ORDERED: CLOPIDOGREL 75 MG TAB ONE ×2 (10:34→11:02)
--- NOTE | 2020-04-04 10:56 | Event Note ---
Date: 04/04/20 We performed a cardiac catheterization via the right radial artery that showed a greater than 99% restenosis at the proximal border of the distal right coronary artery stent. Successful angioplasty with deployment of a 3.5 x 8 mm drug- eluting stent, excellent angiographic result and restorationist of DAMON-3 flow. The LAD stent deployed in July 2019 was widely patent. It is worth noting that the angiogram report from July indicated no significant lesion at the current location of the subtotal occlusion of the distal right coronary. The patient will need additional overnight observation, and discharge tomorrow on standard guideline directed medical therapy including dual oral antiplatelet therapy with aspirin and Plavix.
[2020-04-04] MEDS ORDERED: SODIUM CHLORIDE 0.9% 1000 ML 1,000 ML IV SCH (11:00)
[2020-04-04] MEDS ORDERED: CLOPIDOGREL 300 MG TAB ONE (11:02)
--- NOTE | 2020-04-04 11:22 | Cardiac Catherization Report ---
CARDIAC CATHETERIZATION AND CORONARY ANGIOPLASTY REPORT REASON FOR PROCEDURE: The patient is a 64-year-old man with multivessel coronary artery disease. He has a stent in the proximal to mid LAD and distal AV groove, right coronary. A cardiac catheterization report from [facility] reported wide patency of his distal right coronary artery stent, and at that time, he underwent placement of a new, 3.5 mm drug-eluting stent in the proximal to mid LAD. He presents to this hospital at this time with unstable angina. He reports that he is fully compliant with his dual antiplatelet therapy with Plavix. After initial evaluation, a cardiac catheterization was recommended. PROCEDURES: 1. Left heart catheterization. 2. Selective left and right coronary angiography. 3. Angioplasty and stenting of the distal right coronary artery. 4. Sedation time, start 0954, end 1032. DESCRIPTION OF PROCEDURE: The patient was prepped and draped in a sterile fashion after informed consent. The right radial cath site was prepped and draped after a negative Piter's test. The right radial artery was entered using Seldinger technique followed by placement of a 6-Amharic hydrophilic sheath. Routine radial cocktail was administered via the sheath. We then performed selective left and right coronary angiography using a #3.5 left Tony and a #4 right Tony. The angiograms were reviewed. CORONARY ANGIOGRAPHY: The left main coronary artery was free of significant disease. The left anterior descending artery was notable for a stent deployed in its proximal to mid segment. The stented segment of the LAD was widely patent. We did note mild atherosclerosis involving the diagonal branches and moderate diffuse atherosclerosis of the distal apical segments of the LAD. A large ramus intermedius artery contained mild luminal irregularities. The circumflex artery was a small caliber system that contained a 50% stenosis of its mid to distal segment. The right coronary artery was a dominant vessel. There was a 30% stenosis of the proximal vessel followed by another 30% stenosis of the mid vessel. Beyond that, the distal AV groove right coronary was notable for a previous stent. The stented segment extended beyond the origin of the PDA and into a large posterolateral system. We did note greater than 99% proximal border restenosis of the right coronary artery stent. This lesion was associated with delayed, DAMON 2 antegrade flow. CORONARY ANGIOPLASTY: After review of the angiograms, we commenced ad hoc coronary intervention to the distal right coronary artery proximal border stent restenosis. We selected a #1 right Amplatz guiding catheter and advanced to the right coronary ostium. A 0.014 inch Wine Bottle Inspector 50 guidewire was then advanced through the lesional segment into the distal vessel. Following wire placement, in a primary stenting maneuver, we deployed a 3.5 x 8 mm Resolute drug-eluting stent and inflated the stent to optimal pressures. Additional balloon angioplasty was also undertaken in the mid segment of the stent. Following angioplasty and stenting, there was an excellent angiographic result, 0 residual stenosis and DAMON 3 flow was restored in the right coronary artery. The procedure was well tolerated by the patient and there were no complications. CONCLUSION: 1. Multivessel coronary artery disease. 2. Widely patent proximal to mid left anterior descending artery stent. 3. Greater than 99% proximal border restenosis of the distal right coronary artery stent. 4. Successful ad hoc angioplasty and stenting of the distal right coronary artery with deployment of a 3.5 x 8 mm drug-eluting stent, excellent angiographic result. An echocardiogram will be ordered for left ventricular function and valvular function assessment, the patient will be maintained on aggressive risk factor modification and standard, guideline directed medical therapy including continued dual oral antiplatelet therapy. JOB# [id number] SAMANTHA/CHET
[2020-04-04] MEDS ORDERED: HYDROcodone/ACETAMINOPHEN 5-325 MG TAB PO PRN (11:30)
[2020-04-04] MEDS: METOPROLOL TARTRATE 25 MG TAB PO SCH (21:45)
[2020-04-05 06:13] LABS: Basophils # (Auto) 0.1 K/mm3 (0.0-0.1); Basophils % (Auto) 1.2 % (0.0-1.8); Eosinophils # (Auto) 0.1 K/mm3 (0.0-0.4); Eosinophils % (Auto) 2.2 % (0.0-4.3); Hematocrit 38.9 % (35.5-45.6); Hemoglobin 13.4 gm/dl (11.8-15.2); Lymphocytes # (Auto) 1.5 K/mm3 (1.2-5.4); Lymphocytes % (Auto) 23.2 % (13.4-35.0); Mean Corpuscular HGB Conc 34 % (32-34); Mean Corpuscular Volume 93 fl (84-94); Monocytes # (Auto) 0.5 K/mm3 (0.0-0.8); Monocytes % (Auto) 8.4 % (0.0-7.3); Platelet Count 183 K/mm3 (140-440); Red Cell Distribution Width 14.4 % (13.2-15.2)
[2020-04-05 06:26] LABS: Creatine Kinase MB 10.6 ng/mL (0.0-4.0)
[2020-04-05 06:27] LABS: BUN/Creatinine Ratio 16; Blood Urea Nitrogen 14 mg/dL (9-20); Hemolysis Index 4
[2020-04-05 08:09] VITALS: BP 101/53
--- NOTE | 2020-04-05 08:19 | XRay Report ---
CHEST 1 VIEW INDICATION: post pci. COMPARISON: 04/02/2020 FINDINGS: Support devices: None. Heart: Within normal limits. Lungs/Pleura: No acute air space or interstitial disease. Additional findings: None. IMPRESSION: No acute findings. Signer Name: Stevie Paige Jr, MD Signed: 04/05/2020 8:15 AM Workstation Name: [id number]
[2020-04-05] MEDS ORDERED: CLOPIDOGREL 75 MG TAB PO SCH (10:00)
--- NOTE | 2020-04-05 10:23 | Progress Note ---
Assessment and Plan Chest pain C showed a greater than 99% restenosis at the proximal border of the distal right coronary artery stent. Successful angioplasty with deployment of a drug- eluting stent. The LAD stent deployed in July 2019 was widely patent. on plavix and aspirin Hx of Ischemic Cardiomyopathy LVEF 40-45% by echo this presentation Hx of Diabetes, diet controlled Noncompliant with outpatient cardiac follow up Recommendations: Continue guideline directed medical therapy including dual oral antiplatelet therapy with aspirin and Plavix. Stable cardiac richard. Patient advised to follow up in our office within 5-7 days of discharge. Subjective Date of service: 04/05/20 Interval history: Patient is sitting up in the bedside chair. He denies chest pain. Denies shortness of breath. Objective Vital Signs Temp Pulse Resp BP Pulse Ox 04/05/20 09:11 60 04/05/20 08:04 101/53 04/05/20 08:00 98 04/05/20 03:40 98.4 F 70 16 99/55 97 04/04/20 23:33 98.3 F 63 16 95/52 97 04/04/20 20:36 18 98 04/04/20 20:20 91 H 04/04/20 19:11 98.1 F 91 H 16 109/51 97 04/04/20 18:11 65 100 04/04/20 16:00 65 100 04/04/20 15:20 100 04/04/20 14:30 100 04/04/20 14:00 100 04/04/20 13:30 100 04/04/20 13:00 61 118/67 99 04/04/20 12:57 66 112/68 100 04/04/20 12:45 60 98 04/04/20 12:30 59 L 115/62 98 04/04/20 12:15 61 111/65 99 04/04/20 12:00 66 121/66 97 04/04/20 11:45 58 L 118/66 97 04/04/20 11:30 58 L 113/63 97 04/04/20 11:13 62 115/59 97 - Physical Examination General: No Apparent Distress HEENT: Positive: PERRL Neck: Positive: trachea midline Cardiac: Positive: Reg Rate and Rhythm Lungs: Positive: Normal Breath Sounds Neuro: Positive: Grossly Intact Incision: Cardiac Cath Site (right radial) Extremities: Absent: edema - Labs and Meds Cardiac Enzymes 04/05/20 Range/Units 05:41 CK-MB (CK-2) 10.6 H (0.0-4.0) ng/mL CBC 04/05/20 Range/Units 05:41 WBC 6.4 (4.5-11.0) K/mm3 RBC 4.20 (3.65-5.03) M/mm3 Hgb 13.4 (11.8-15.2) gm/dl Hct 38.9 (35.5-45.6) % Plt Count 183 (140-440) K/mm3 Lymph # (Auto) 1.5 (1.2-5.4) K/mm3 [place] # (Auto) 0.5 (0.0-0.8) K/mm3 Eos # (Auto) 0.1 (0.0-0.4) K/mm3 Baso # (Auto) 0.1 (0.0-0.1) K/mm3 Comprehensive Metabolic Panel 04/05/20 Range/Units 05:41 Sodium 142 (137-145) mmol/L Potassium 3.6 (3.6-5.0) mmol/L Chloride 104.4 (98-107) mmol/L Carbon Dioxide 27 (22-30) mmol/L BUN 14 (9-20) mg/dL Creatinine 0.9 (0.8-1.3) mg/dL Glucose 96 (75-100) mg/dL Calcium 9.0 (8.4-10.2) mg/dL
[2020-04-05] MEDS: LISINOPRIL 5 MG TAB PO SCH (10:24)
[2020-04-05] MEDS: ASPIRIN EC 325 MG TAB PO SCH (10:25)
[2020-04-05] MEDS: METOPROLOL TARTRATE 25 MG TAB PO SCH (10:25)
--- NOTE | 2020-04-05 11:34 | Discharge Summary ---
<SAMIA CARPENTER - Last Filed: 04/05/20 13:54> Providers - Providers Date of Admission: 04/04/20 12:01 Date of discharge: 04/05/20 Attending physician: LIZZ STOVER 04/02/20 Consult to Cardiac Rehabilitation [CONS] Routine Reason For Exam: Phase I 04/02/20 21:46 Consult to Physician [CONS] Urgent Comment: Consulting Provider: TRISH THOMAS Physician Instructions: Reason For Exam: exertional cp, hx of cad stent x 2 04/02/20 22:11 Consult to Dietitian/Nutrition [CONS] Routine Physician Instructions: Reason For Exam: Reason for Consult: Diet education 04/04/20 Consult to Cardiac Rehabilitation [CONS] Routine Reason For Exam: post pci 04/04/20 09:24 Consult to Case Management [CONS] Routine Services Needed at Discharge: Flour Worker Notified:: case management Comment:: underfunded Primary care physician: CAMERA TUNING ENGINEER Hospitalization Condition: Stable Pertinent studies: 04/02 echocardiogram shows LVH is mildly dilated, LV systolic function global left ventricular systolic function is mildly decreased, estimated EF 40%, mild mitral valve regurgitation, trace tricuspid valve regurgitation 04/04 chest x-ray post PCI shows no acute abnormalities. Procedures: 04/04 left heart cath: showed a greater than 99% restenosis at the proximal border of the distal right coronary artery stent. Successful angioplasty with deployment of a 3.5 x 8 mm drug-eluting stent, excellent angiographic result and christianity of DAMON-3 flow. The LAD stent deployed in July 2019 was widely patent. Hospital course: 64-year-old male with coronary artery disease with ID and stent placement x2, CHF, DM and former smoker who presents to the emergency department on 04/02 with exertional substernal chest pressure with radiation towards the left upper extremity rated a 7/10 which lasted about 30 to 45 minutes and improved with sublingual nitroglycerin. He had associated nausea and mild shortness of breath. Of note the patient had a cardiac cath about 8 months ago at [facility] but has not followed up with a bridge engineer lately since he has moved away from his bridge engineer. Work-up in the emergency department included EKG, chest x-ray, and cardiac enzymes which all showed no acute abnormality. Cardiology was consulted in the emergency department. After his admission to the hospital his troponins have elevated and he was scheduled for a stress test on 04/03 which was cancelled. He had a left heart cath on 04/03 with the department to be [facility]. He will need to follow-up with his primary care physician within 1 to 2 weeks of discharge. Follow-up with cardiology within 5 to 7 days of discharge. He will be discharged with Imdur,lisinopril, metoprolol. It is recommended to monitor blood pressure and heart rate before taking these medications. Do not take metoprolol if your heart rate is less than 60 or systolic blood pressure is less than 100. (1) Exertional chest pain Current Visit: Yes Status: Acute Plan to address problem: Presented to the emergency department complaining of exertional chest pain Serial troponins have been elevated (<0.010, 0.051, 0.079, 0.279 on 04/05 post PCI) S/p heparin gtt (04/03-04/04) PRN Nitroglycerin for chest pain 04/02 echocardiogram shows LVH is mildly dilated, LV systolic function global left ventricular systolic function is mildly decreased, estimated EF 40%, mild mitral valve regurgitation, trace tricuspid valve regurgitation 04/04 left heart cath: showed a greater than 99% restenosis at the proximal border of the distal right coronary artery stent. Successful angioplasty with deployment of a 3.5 x 8 mm drug-eluting stent, excellent angiographic result and christianity of DAMON-3 flow. The LAD stent deployed in July 2019 was widely patent. Follow-up with cardiology outpatient within 5 to 7 days of discharge (2) Congestive heart failure Current Visit: Yes Status: Chronic Plan to address problem: 04/02 echocardiogram shows LVH is mildly dilated, LV systolic function global left ventricular systolic function is mildly decreased, estimated EF 40%, mild mitral valve regurgitation, trace tricuspid valve regurgitation 04/03 left heart cath showed greater than 99% restenosis of the proximal border of the right distal coronary artery stent, successful angioplasty with department of [facility] with excellent angiographic results and christianity of DAMON-3 flow. LAD stent patent Follow-up with cardiology outpatient within 5 to 7 days of discharge. (3) Diabetes mellitus Current Visit: Yes Status: Chronic Plan to address problem: Patient states has been diet controlled, he has been following a ketogenic diet 04/03 Hemoglobin A1c 6 Blood glucose monitoring per primary care physician Follow-up with your primary care physician within 1 to 2 weeks of discharge (4) CAD (coronary artery disease) Current Visit: Yes Status: Chronic Plan to address problem: 04/03 LDH profile: Triglycerides 52, cholesterol 208, LDL 150, HDL 60 Patient states he has been following the ketogenic diet Continue statin therapy Disposition: TO HOME OR SELFCARE Time spent for discharge: 35 Core Measure Documentation - Palliative Care Palliative Care/ Comfort Measures: Not Applicable - Core Measures Any of the following diagnoses?: heart failure - Heart Failure Discharge Requirements MOUNA/ARB for LVSD if EF <40%: Yes Beta caimla at discharge: Yes Exam - Constitutional Vitals: Temp Pulse Resp BP Pulse Ox 98.4 F 60 16 101/53 98 04/05/20 03:40 04/05/20 09:11 04/05/20 03:40 04/05/20 08:04 04/05/20 08:00 General appearance: Present: no acute distress - EENT Eyes: Present: PERRL, EOM intact ENT: hearing intact, clear oral mucosa - Neck Neck: Present: supple, normal ROM - Respiratory Respiratory effort: normal Respiratory: bilateral: CTA - Cardiovascular Rhythm: regular Heart Sounds: Present: S1 & S2. Absent: systolic murmur, diastolic murmur - Extremities Extremities: no ischemia, pulses intact, pulses symmetrical, No edema, normal temperature, normal color, Full ROM - Abdominal General gastrointestinal: Present: soft, non-tender, non-distended, normal bowel sounds - Integumentary Integumentary: Present: clear, warm, dry - Musculoskeletal Musculoskeletal: strength equal bilaterally - Psychiatric Psychiatric: appropriate mood/affect, cooperative - Neurologic Neurologic: CNII-XII intact, no focal deficits, moves all extremities - Allied Health Allied health notes reviewed: nursing Plan Activity: advance as tolerated Diet: low fat, low cholesterol, low salt Special Instructions: record daily weights, record daily BP diary, record blood sugar diary Additional Instructions: It is advised that you establish a primary care physi rose marie and follow-up with them within 1 to 2 weeks of discharge. Follow-up with the bridge engineer office within 5 to 7 days of discharge. Do not take your metoprolol if your systolic blood pressure is less than 100 or your heart rate is less than 60. Follow up with: SANJIV SERRANO MD [Primary Care Provider] - 3-5 Days TANJA WYNNE MD [Staff Physician] - 7 Days Forms: [facility] PCI D/C Instructions, Work/School Release Form Prescriptions: AtorvaSTATin [Lipitor] 80 mg PO QHS #30 tablet Aspirin EC [Ecotrin] 325 mg PO QDAY #30 tablet ISOSORBIDE MONOnitrate [Imdur ER] 30 mg PO QDAY #30 tablet Metoprolol [Lopressor TAB] 25 mg PO BID #60 tablet Nitroglycerin [Nitrostat] 0.4 mg SL Q5M PRN #14 tablet PRN Reason: Chest Pain Clopidogrel [Plavix] 75 mg PO QDAY #30 tablet lisinopriL [Zestril TAB] 5 mg PO QDAY #30 tablet <LIZZ STOVER - Last Filed: 04/05/20 19:16> Providers - Providers Date of Admission: 04/04/20 12:01 Attending physician: LIZZ STOVER 04/02/20 Consult to Cardiac Rehabilitation [CONS] Routine Reason For Exam: Phase I 04/02/20 21:46 Consult to Physician [CONS] Urgent Comment: Consulting Provider: TRISH THOMAS Physician Instructions: Reason For Exam: exertional cp, hx of cad stent x 2 04/02/20 22:11 Consult to Dietitian/Nutrition [CONS] Routine Physician Instructions: Reason For Exam: Reason for Consult: Diet education 04/04/20 Consult to Cardiac Rehabilitation [CONS] Routine Reason For Exam: post pci 04/04/20 09:24 Consult to Case Management [CONS] Routine Services Needed at Discharge: Flour Worker Notified:: case management Comment:: underfunded Primary care physician: CAMERA TUNING ENGINEER Core Measure Documentation - Core Measures Any of the following diagnoses?: acute ID - Acute ID Discharge Requirements Aspirin at discharge: Yes MOUNA/ARB for LVSD if EF <40%: Yes Beta camila at discharge: Yes Statin for LDL = or >100 mg/dl on DC: Yes Exam - Constitutional Vitals: Temp Pulse Resp BP Pulse Ox 98.4 F 60 16 101/53 98 04/05/20 03:40 04/05/20 09:11 04/05/20 03:40 04/05/20 08:04 04/05/20 08:00
== END 2020-04-05 16:12 | disposition home or self-care (01) | DRG 247 ==
LOC: ED 20:22 → 4A 21:47 → OBSVTOIN 04-04 12:01
PROVIDERS: ADMIT Internal Medicine Geriatric Medicine; ATTEND Internal Medicine
PROC: 4A023N7 Measurement of Cardiac Sampling and Pressure, Left Heart, Percutaneous Approach (ICD-10-PCS; principal; 2020-04-04)
PROC: 027034Z Dilation of Coronary Artery, One Artery with Drug-eluting Intraluminal Device, Percutaneous Approach (ICD-10-PCS; 2020-04-04)
PROC: B2111ZZ Fluoroscopy of Multiple Coronary Arteries using Low Osmolar Contrast (ICD-10-PCS; 2020-04-04)
DX: T82.855A Stenosis of coronary artery stent, initial encounter (principal); I25.110 Atherosclerotic heart disease of native coronary artery with unstable angina pectoris; Y83.2 Surgical operation with anastomosis, bypass or graft as the cause of abnormal reaction of the patient, or of later complication, without mention of misadventure at the time of the procedure; Y92.89 Other specified places as the place of occurrence of the external cause; I50.9 Heart failure, unspecified; E11.9 Type 2 diabetes mellitus without complications; I25.5 Ischemic cardiomyopathy; F17.200 Nicotine dependence, unspecified, uncomplicated; E78.5 Hyperlipidemia, unspecified; I25.2 Old myocardial infarction; Z95.5 Presence of coronary angioplasty implant and graft; Z88.0 Allergy status to penicillin; Z79.82 Long term (current) use of aspirin; Z79.899 Other long term (current) drug therapy
CPT/HCPCS: 36415; 71045; 80048; 80053; 80061; 82550; 82553; 82962; 83036; 83735; 84484; 85014; 85018; 85025; 85520; 85610; 85730; 92928; 93005; 93306; 93458; 96365; G0378; A9270-GY; C1769; C1874; C1887; C1894; C9600; J1644; J2250; J3010; J7030; J7040; Q9967